=== PATIENT | female | born 1995 | race American Indian/Alaskan Native ===

== ENCOUNTER 2020-03-06 12:05 | Inpatient (IN) | payer MEDICAID ==
--- NOTE | 2020-03-06 13:29 | History and Physical Report ---
History of Present Illness Date of examination: 03/06/20 History of present illness: 24 yo at 38.5 weeks today with h/o 2 prior c-sections is here to rule out preeclampsia. Patient with an uncomplicated but had elevated blood pressures in the office the last couple weeks. Blood pressure in office today was 152/97 and 142/100. No protein on urine dip. No preeclamptic symptoms. Patient is on low-dose aspirin because she had preeclampsia during her last . Only other complaint patient has is bilateral calf pain and tenderness. She has had this for a few days now. Past History Past Medical History: other (h/o preeclampsia) Past Surgical History: section (x 2) Medications and Allergies Allergies Allergy/AdvReac Type Severity Reaction Status Date / Time No Known Allergies Allergy Unverified 01/20/15 20:05 Home Medications Medication Instructions Recorded Confirmed Last Taken Type Acetamin/Codeine 120-12Mg/5 ml 5 ml PO TID PRN #10 dose 01/20/15 Unknown Rx [Tylenol/Codeine] Amoxicillin [Amoxicillin TAB] 875 mg PO BID #20 tablet 01/20/15 Unknown Rx predniSONE [Prednisone] 40 mg PO QDAY #3 day 01/20/15 Unknown Rx Review of Systems All systems: negative (except HPI) - Physical Exam Abdomen: Positive: soft. Negative: tenderness Extremities: Positive: tenderness (B/L calf tend) - Obstetrical FHR comments: Pt is being put on the monitor now. Normal FHT in the office. Results All other labs normal. Assessment and Plan - Patient Problems (1) Elevated blood pressure affecting in third trimester, antepartum Current Visit: Yes Status: Acute Plan to address problem: Admit for observation and 24 hr urine. Check preeclamptic labs as well. Check BPP. H/O prior x 2 (2) Bilateral calf pain Current Visit: Yes Status: Acute Plan to address problem: check LE dopplers
[2020-03-06 14:20] LABS: Hematocrit 39.8 % (30.3-42.9); Hemoglobin 14.1 gm/dl (10.1-14.3); Mean Corpuscular HGB Conc 35 % (30-34); Mean Corpuscular Volume 99 fl (79-97); Platelet Count 148 K/mm3 (140-440); Red Blood Count 4.01 M/mm3 (3.65-5.03); Red Cell Distribution Width 12.9 % (13.2-15.2)
[2020-03-06 14:32] LABS: Alanine Aminotransferase 14 units/L (7-56); Uric Acid 5.3 mg/dL (3.5-7.6)
[2020-03-06 14:55] LABS: Bilirubin,Urine NEG (Negative); Blood,Urine NEG (Negative); Color,Urine Yellow (Yellow); Mucus,Urine FEW /HPF; Protein,Urine <15 mg/dL mg/dL (Negative); Urobilinogen,Urine < 2.0 mg/dL (<2.0)
--- NOTE | 2020-03-06 17:38 | Vascular Lab Report ---
DUPLEX DOPPLER LOWER EXTREMITY VEINS, BILATERAL INDICATION: calf pain and . TECHNIQUE: Duplex doppler imaging was performed through the veins of both lower extremities using venous kee melanie and other maneuvers. COMPARISON: None available. FINDINGS: Right Common Femoral vein: Negative. Right Superficial Femoral vein: Negative. Right Popliteal vein: Negative. Right Calf veins: Negative. Left Common Femoral vein: Negative. Left Superficial Femoral vein: Negative. Left Popliteal vein: Negative. Left Calf veins: Negative. Additional findings: None. IMPRESSION: 1. No sonographic evidence for DVT in either lower extremity. Signer Name: Viraj Erickson MD Signed: 03/06/2020 5:34 PM Workstation Name: [id number]
--- NOTE | 2020-03-06 17:40 | Ultrasound Report ---
ULTRASOUND BIOPHYSICAL PROFILE LIMITED OBSTETRIC ULTRASOUND INDICATION: Maternal hypertension. COMPARISON: None available. FINDINGS: breathing movement = 2 Gross body movement = 2 tone = 2 Qualitative amniotic fluid volume = 2 Total biophysical score = 8/8 Presentation is Cephalic. heart rate is 137 beats per minute. Amniotic fluid index is 10.5 cm, within normal limits. IMPRESSION: 1. biophysical profile = 8/8 2. Amniotic fluid index is 10.5 cm, within normal limits. 3. lie is cephalic. Signer Name: Viraj Erickson MD Signed: 03/06/2020 5:35 PM Workstation Name: [id number]
[2020-03-06] MEDS: LACTATED RINGERS 1,000 ML IV SCH (23:39)
[2020-03-07] MEDS ORDERED: METOCLOPRAMIDE 10 MG/2 ML INJ IV NR (08:41)
[2020-03-07] MEDS ORDERED: FAMOTIDINE 20 MG/2 ML INJ IV NR (08:41)
[2020-03-07] MEDS ORDERED: BICITRA ORAL LIQD 30ML PO NR (08:41)
[2020-03-07] MEDS ORDERED: MAGNESIUM SULFATE 4 GM/100 ML BAG IV NR (08:43)
[2020-03-07] MEDS ORDERED: LACTATED RINGERS 1,000 ML IV SCH (09:00)
[2020-03-07] MEDS ORDERED: OXYTOCIN 20 UNIT/1000ML DRIP 20 UNITS/1,000 ML BAG IV SCH ×2 (09:00→15:00)
[2020-03-07] MEDS ORDERED: MAGNESIUM SULFATE 40GM/1000ML 40 GM/1,000 ML BAG IV SCH (09:00)
[2020-03-07] MEDS ORDERED: ceFAZolin/Water 2 GM/20 ML 2 GM/20 ML SYRINGE IV NR (09:00)
[2020-03-07 10:51] LABS: Basophils % (Auto) 0.4 % (0.0-1.8); Eosinophils % (Auto) 0.6 % (0.0-4.3); Hematocrit 39.6 % (30.3-42.9); Hemoglobin 13.8 gm/dl (10.1-14.3); Lymphocytes # (Auto) 1.1 K/mm3 (1.2-5.4); Lymphocytes % (Auto) 16.6 % (13.4-35.0); Mean Corpuscular HGB Conc 35 % (30-34); Mean Corpuscular Volume 99 fl (79-97); Monocytes # (Auto) 0.5 K/mm3 (0.0-0.8); Monocytes % (Auto) 7.6 % (0.0-7.3); Platelet Count 146 K/mm3 (140-440); Red Blood Count 4.02 M/mm3 (3.65-5.03)
[2020-03-07] MEDS ORDERED: AMPICILLIN 2 GM in SODIUM CHLORIDE 0.9% 50 ML IV ONE (11:56)
[2020-03-07] MEDS ORDERED: AMPICILLIN/NS 2 GM/100 ML 2 GM/100 ML BAG IV ONE (12:05)
--- NOTE | 2020-03-07 12:07 | Event Note ---
Date: 03/07/20 BPs are labile and elevated. 24 hr urinary is cancelled and patient will be delivered by repeat as soon as the or is ready.
[2020-03-07] MEDS ORDERED: KETOROLAC 30 MG/1 ML INJ ONE (13:01)
[2020-03-07] MEDS ORDERED: DEXMEDETOMIDINE 200 MCG/2 ML VIAL IV ONE (13:01)
[2020-03-07] MEDS ORDERED: ONDANSETRON 4 MG/2 ML INJ ONE (13:01)
[2020-03-07] MEDS ORDERED: SODIUM CHLORIDE 0.9% IRR 1,500 ML BOTTLE IR ONE (13:35)
[2020-03-07] MEDS ORDERED: WATER FOR IRRIG STERILE 1,500 ML BOTTLE IR ONE (13:35)
[2020-03-07] MEDS ORDERED: ceFAZolin 1 GM VIAL ONE (13:39)
[2020-03-07] MEDS ORDERED: OXYTOCIN 10 UNIT/1 ML INJ ONE (13:58)
[2020-03-07] MEDS ORDERED: LANOLIN/ZINC/DIMETHICONE (LANSINOH) 7 GM TP PRN (14:28)
[2020-03-07] MEDS ORDERED: WITCH HAZEL/ GLYCERIN PAD TP PRN (14:28)
[2020-03-07] MEDS ORDERED: NALOXONE 0.4 MG/1 ML INJ IV PRN (14:28)
[2020-03-07] MEDS ORDERED: MORPHINE 4 MG/1 ML INJ IV PRN (14:28)
[2020-03-07] MEDS ORDERED: ONDANSETRON 4 MG/2 ML INJ IV PRN ×2 (14:28→14:42)
[2020-03-07] MEDS ORDERED: ACETAMINOPHEN 325 MG TAB PO PRN (14:28)
--- NOTE | 2020-03-07 14:35 | Operative Report ---
Operative Report Operative Report: Date of surgery: March 07, 2020 Preoperative diagnoses: Preeclampsia, 2 previous C-sections, annie Postoperative diagnoses: The same. Operation: Lower segment transverse delivery Surgeon:Homer Walker MD Foreign Trade Teacher: Bhargav Saeed CRNA Anesthesia: Spinal block Estimated blood loss: 600 mL Complications: None Findings: There was a live baby girl weighing 255 3 g, Apgars 8/9 in vertex presentation. The ovaries, fallopian tubes and the uterus were all grossly normal. No peritoneal adhesions were found within the lower abdomen and pelvis. The greater omentum was palpably normal. Procedure in detail: The patient was taken to the operating room and given a spinal block. Patient was placed in the straight supine position and a Venegas catheter was inserted. The patient was prepped in the abdomen. The drapes were placed. A timeout was done. With the go ahead from the commercial sales manager, a Pfannenstiel incision was made. This incision was carried across the subcutaneous layer to the fascia which was also divided transversely. The recti abdominis muscle flaps were stripped from the fascia using a combination of blunt and sharp dissections. The muscles were in the midline to gain access to the anterior parietal peritoneum which was divided after excluding any underlying viscera. The access to the peritoneal cavity was then widened by manual stretching. The bladder blade was applied. The utero vesicle peritoneal flap was divided transversely allowing the bladder to be displaced caudally. The uterine incision was placed in the lower segment transversely. The uterine incision was carried to the decidual layer. The uterine incision was extended on both sides using the bandage scissors. The amniotic sac was ruptured with clear fluid. The head was lifted out of the false maternal pelvis and delivered through the incision using fundal pressure. The airways were bulb suctioned beginning with the mouth. Continuing fundal pressure combined with traction on the mandibular processes of the jaw delivered the rest of the baby. The umbilical cord was double clamped and divided. The baby was carefully transferred to the pediatric team. The placenta was manually removed from the uterine cavity. The uterine cavity was explored and was empty of any placental remnants. The uterine incision was repaired in 2 layers with #1 Vicryl. The surgical line on the uterus was hemostatic. Blood and clots were cleared from the peritoneal cavity. The anterior parietal peritoneum was repaired with #1 Vicryl. The fascia was repaired with #1 Vicryl. The subcutaneous layer was made hemostatic using the Bovie before the skin was closed subcuticularly with 4-0 Vicryl. There were no complications. The estimated blood loss was 600 mL. All sponges and instrument counts were correct. Patient was safely transferred to the recovery room.
[2020-03-07] MEDS ORDERED: NalbUPHINE 10 MG/1 ML INJ IV PRN (14:42)
[2020-03-07] MEDS ORDERED: PROMETHAZINE 25 MG RECT SUPP PR PRN (14:42)
[2020-03-07] MEDS ORDERED: HYDROmorphone 1 MG/1 ML INJ IV PRN (14:42)
[2020-03-07] MEDS ORDERED: diphenhydrAMINE 50 MG/ML VIAL IV PRN (14:42)
[2020-03-07] MEDS ORDERED: PROMETHAZINE 25 MG TAB PO PRN (14:42)
--- NOTE | 2020-03-07 14:45 | Anesthesia Day of Surgery ---
Anesthesia Day of Surgery - Day of Surgery Patient Examined: Yes Patient H&P Reviewed: Yes Patient is NPO: Yes Beta Blockers: No Cardiac Clearance: No Pulmonary Clearance: No Nehemias's Test: N/A
--- NOTE | 2020-03-07 14:45 | Anesthesia Consultation ---
Anesthesia Consult and Med Hx - Airway Anesthetic Teeth Evaluation: Good ROM Head & Neck: Adequate Mental/Hyoid Distance: Adequate Mallampati Class: Class II Intubation Access Assessment: Good - Pulmonary Exam CTA: Yes - Cardiac Exam Cardiac Exam: RRR - Pre-Operative Health Status ASA Pre-Surgery Classification: ASA2 Proposed Anesthetic Plan: Spinal - Pulmonary Hx Smoking: No Hx Asthma: No COPD: No Hx Pneumonia: No Hx Sleep Apnea: No - Cardiovascular System Hx Hypertension: Yes (2013, 2015) - Central Nervous System Hx Seizures: No Hx Psychiatric Problems: No - Gastrointestinal Hx Gastroesophageal Reflux Disease: No - Endocrine Hx Renal Disease: No Hx End Stage Renal Disease: No Hx Insulin Dependent Diabetes: No Hx Non-Insulin Dependent Diabetes: No Hx Hypothyroidism: No Hx Hyperthyroidism: No - Hematic Hx Anemia: No Hx Sickle Cell Disease: No - Other Systems Hx Alcohol Use: No
--- NOTE | 2020-03-07 14:47 | Progress Note ---
Spinal Anesthesia Block - Spinal Anesthesia Block Start Time: 13:15 Stop Time: 13:20 Performed by:: MICHAEL ROOT Procedure: Spinal anesthesia block is being performed for [C/S]. H&P, labs have been reviewed. Patient's questions and concerns have been answered. Informed consent has been performed. Timeout has was performed. Patient in sitting position on side of bed. Sterile prep and drape was performed. [3] mL 1% lidocaine skin wheal at L [3]-L [4]. Needle introducer advanced. 25-gauge spinal needle advanced, [positive] CSF [negative] blood. [11.25mg Marcaine and 10mcg Precedex] Spinal dose was given. All needles removed. Patient tolerated procedure well.
[2020-03-07] MEDS: HYDROcodone/ACETAMINOPHEN 5-325 MG TAB PO PRN (17:07)
[2020-03-07] MEDS: LACTATED RINGERS 1,000 ML IV SCH (20:06)
[2020-03-07] MEDS: ceFAZolin/NS 1 GM/50 ML 1 GM/50 ML BAG IV SCH (21:10)
[2020-03-08] MEDS: KETOROLAC 30 MG/1 ML INJ IV PRN ×2 (00:59→09:38)
[2020-03-08] MEDS: ceFAZolin/NS 1 GM/50 ML 1 GM/50 ML BAG IV SCH (04:58)
[2020-03-08] MEDS: LACTATED RINGERS 1,000 ML IV SCH (05:01)
[2020-03-08 06:07] LABS: Hematocrit 28.6 % (30.3-42.9)
--- NOTE | 2020-03-08 08:32 | Post Anesthesia Evaluation ---
- Post Anesthesia Evaluation Patient Participated: Yes Airway Patent: Yes Stable Respiratory Function: Yes Nausea/Vomiting: No Temp > 96.8F: Yes Pain Manageable: Yes Adequeate Hydration: Yes Anesthesia Complications: No Block Receding Appropriately: Yes Patient on Ventilator: No
[2020-03-08] MEDS: IBUPROFEN 800 MG TAB PO PRN ×2 (09:00→18:12)
[2020-03-08] MEDS: PRENATAL VIT27-FE FUMARATE-FOLIC ACID VIT TAB PO SCH (09:38)
[2020-03-08] MEDS: FERROUS SULFATE 325 MG TAB PO SCH (09:39)
--- NOTE | 2020-03-08 13:12 | Progress Note ---
Assessment and Plan A: /postop day 1 S/P repeat LTCS. Anemia. Preeclampsia, on magnesium sulfate. P: Mag is to be stopped this afternoon. Supplement with iron. Subjective - Subjective Date of service: 03/08/20 Principal diagnosis: /postop day 1 S/P repeat LTCS; preeclampsia Interval history: /postop day 1 S/P repeat LTCS. Denies headache, visual disturbance, or N/V. Patient reports: appetite normal, pain well controlled, flatus, no nauseated : doing well Objective - Vital Signs Latest vital signs: Vital Signs Temp Pulse Resp BP Pulse Ox 03/08/20 13:03 89 99 03/08/20 12:58 98 H 99 03/08/20 12:53 94 H 99 03/08/20 12:48 92 H 99 03/08/20 12:43 80 99 03/08/20 12:38 86 99 03/08/20 12:33 89 98 03/08/20 12:28 82 99 03/08/20 12:23 80 99 03/08/20 12:18 81 99 03/08/20 12:13 88 98 03/08/20 12:09 82 137/85 03/08/20 12:08 86 99 03/08/20 12:03 83 99 03/08/20 11:58 81 99 03/08/20 11:53 84 99 03/08/20 11:48 83 99 03/08/20 11:43 85 99 03/08/20 11:38 84 99 03/08/20 11:33 89 98 03/08/20 11:28 88 99 03/08/20 11:23 88 99 03/08/20 11:18 79 99 03/08/20 11:13 85 99 03/08/20 11:09 82 133/77 03/08/20 11:08 81 99 03/08/20 11:03 87 99 03/08/20 10:58 88 99 03/08/20 10:53 91 H 99 03/08/20 10:48 94 H 99 03/08/20 10:43 94 H 99 03/08/20 10:38 84 100 03/08/20 10:33 89 99 03/08/20 10:28 86 99 03/08/20 10:23 85 99 03/08/20 10:18 82 99 0614/20 10:13 79 99 061420 10:09 71 125/73 0620 10:08 78 99 0620 10:03 79 99 0620 09:58 73 99 06 09:53 78 99 03/08/20 09:48 89 99 03/08/20 09:43 81 99 06 09:38 85 100 03/08/20 09:33 86 99 03/08/20 09:28 81 99 03/08/20 09:23 84 99 03/08/20 09:18 86 99 03/08/20 09:13 71 99 06 09:09 71 151/77 06 09:08 69 99 03/08/20 09:03 71 99 03/08/20 08:58 72 99 03/08/20 08:53 74 99 03/08/20 08:48 79 99 03/08/20 08:43 87 98 03/08/20 08:38 69 99 03/08/20 08:33 78 99 03/08/20 08:28 76 99 03/08/20 08:23 89 98 03/08/20 08:20 97.8 F 03/08/20 08:18 93 H 100 03/08/20 08:13 71 100 03/08/20 08:09 69 134/87 03/08/20 08:08 71 100 03/08/20 08:03 71 99 03/08/20 07:58 69 99 03/08/20 07:53 68 99 03/08/20 07:48 68 99 03/08/20 07:43 68 100 03/08/20 07:38 66 99 20 07:33 67 98 03/08/20 07:28 74 99 20 07:23 67 100 20 07:18 66 99 20 07:13 69 99 20 07:09 71 121/76 06 07:08 78 99 03/08/20 07:03 70 99 03/08/20 06:58 67 98 06 06:53 72 98 06 06:48 74 99 03/08/20 06:43 73 98 03/08/20 06:38 79 98 03/08/20 06:33 78 100 03/08/20 06:28 78 99 03/08/20 06:23 94 H 99 03/08/20 06:18 71 99 03/08/20 06:13 71 99 03/08/20 06:09 79 137/87 03/08/20 06:08 80 100 03/08/20 06:03 73 99 03/08/20 06:00 97.8 F 16 98 03/08/20 05:58 69 99 03/08/20 05:53 70 99 03/08/20 05:48 70 100 03/08/20 05:43 68 99 03/08/20 05:38 72 99 03/08/20 05:33 72 99 03/08/20 05:28 79 100 03/08/20 05:23 80 98 03/08/20 05:18 72 100 03/08/20 05:13 88 99 03/08/20 05:09 66 114/60 03/08/20 05:08 68 99 03/08/20 05:03 63 99 03/08/20 04:58 65 100 03/08/20 04:53 67 99 03/08/20 04:48 65 99 03/08/20 04:43 65 100 03/08/20 04:38 75 100 03/08/20 04:33 62 99 03/08/20 04:28 74 99 03/08/20 04:23 71 99 03/08/20 04:18 67 99 03/08/20 04:13 64 99 03/08/20 04:09 64 119/67 03/08/20 04:08 77 100 03/08/20 04:03 67 99 03/08/20 03:58 68 99 03/08/20 03:53 63 99 03/08/20 03:48 70 99 03/08/20 03:43 69 99 03/08/20 03:38 96 H 99 03/08/20 03:33 70 98 03/08/20 03:28 68 98 03/08/20 03:23 71 98 03/08/20 03:18 69 99 03/08/20 03:13 68 98 03/08/20 03:09 71 128/75 03/08/20 03:08 69 99 03/08/20 03:03 70 99 03/08/20 02:58 70 100 06/14/20 02:53 75 100 03/08/20 02:48 77 99 03/08/20 02:43 78 99 03/08/20 02:38 69 98 03/08/20 02:33 71 99 03/08/20 02:28 74 99 03/08/20 02:23 67 98 03/08/20 02:18 66 98 03/08/20 02:13 74 99 03/08/20 02:09 66 134/77 03/08/20 02:08 68 98 03/08/20 02:03 68 98 03/08/20 01:58 68 98 03/08/20 01:53 74 97 03/08/20 01:48 66 98 03/08/20 01:43 65 99 03/08/20 01:38 70 100 03/08/20 01:33 86 99 03/08/20 01:28 62 98 03/08/20 01:23 72 99 03/08/20 01:18 65 99 03/08/20 01:13 69 99 03/08/20 01:09 71 138/90 03/08/20 01:08 73 99 03/08/20 01:03 78 100 03/08/20 00:58 80 100 03/08/20 00:53 74 100 03/08/20 00:48 71 100 03/08/20 00:43 67 99 03/08/20 00:38 66 100 03/08/20 00:33 65 99 03/08/20 00:28 66 99 03/08/20 00:23 67 98 03/08/20 00:18 65 99 03/08/20 00:13 64 99 06 00:09 61 132/74 03/08/20 00:08 65 100 03/08/20 00:03 65 99 03/07/20 23:58 61 99 03/07/20 23:53 76 99 03/07/20 23:48 74 100 03/07/20 23:43 78 100 06 23:38 74 100 03/07/20 23:33 74 100 03/07/20 23:28 66 99 06 23:23 66 99 03/07/20 23:18 73 99 03/07/20 23:13 86 99 03/07/20 23:09 77 128/67 03/07/20 23:08 86 100 03/07/20 23:03 71 99 03/07/20 22:58 73 99 03/07/20 22:53 69 99 03/07/20 22:48 79 100 03/07/20 22:43 75 99 03/07/20 22:38 87 100 03/07/20 22:33 69 99 03/07/20 22:28 68 98 03/07/20 22:23 68 98 03/07/20 22:18 70 98 03/07/20 22:13 90 99 03/07/20 22:09 66 121/69 03/07/20 22:08 68 99 03/07/20 22:03 73 99 03/07/20 21:58 74 99 03/07/20 21:53 72 99 03/07/20 21:48 72 98 03/07/20 21:43 84 99 03/07/20 21:38 73 98 03/07/20 21:33 80 98 03/07/20 21:28 74 99 03/07/20 21:23 74 99 03/07/20 21:18 78 99 03/07/20 21:13 83 98 03/07/20 21:09 86 121/67 03/07/20 21:08 95 H 99 03/07/20 21:03 75 98 03/07/20 20:58 72 97 03/07/20 20:52 71 99 03/07/20 20:47 76 99 03/07/20 20:42 71 99 03/07/20 20:37 68 98 03/07/20 20:32 68 99 03/07/20 20:27 82 98 03/07/20 20:22 68 98 03/07/20 20:17 69 100 03/07/20 20:12 75 99 03/07/20 20:09 71 119/69 03/07/20 20:07 74 99 03/07/20 20:02 69 98 03/07/20 19:57 77 100 03/07/20 19:52 72 99 03/07/20 19:47 72 100 03/07/20 19:42 65 99 03/07/20 19:37 69 100 03/07/20 19:32 72 100 03/07/20 19:27 69 98 03/07/20 19:22 68 98 03/07/20 19:17 70 100 03/07/20 19:12 69 99 03/07/20 19:07 70 100 03/07/20 19:02 69 100 03/07/20 18:57 65 99 03/07/20 18:52 65 100 03/07/20 18:51 64 121/77 03/07/20 18:47 63 100 03/07/20 18:42 64 129/80 99 03/07/20 17:58 18 100 03/07/20 17:43 69 99 03/07/20 17:38 66 99 03/07/20 17:33 68 99 03/07/20 17:28 62 100 03/07/20 17:23 64 99 03/07/20 17:18 65 100 03/07/20 17:16 58 L 137/80 03/07/20 17:13 59 L 100 03/07/20 17:08 60 100 03/07/20 17:07 16 03/07/20 17:03 60 100 03/07/20 16:58 62 100 03/07/20 16:53 64 100 03/07/20 16:48 57 L 03/07/20 16:43 60 130/81 100 03/07/20 16:38 59 L 131/81 100 03/07/20 16:33 98.4 F 58 L 03/07/20 16:28 56 L 100 03/07/20 16:26 56 L 138/81 03/07/20 16:23 60 100 03/07/20 16:18 62 100 Intake and Output 03/07/20 03/08/20 03/08/20 23:59 07:59 15:59 Intake Total 110 1000 Output Total 870 800 Balance -760 200 Intake: IV 60 1000 ANCEF/NS 1 GM/50 ML 1 gm 50 In 50 ml @ 100 mls/hr IV Q8H JONI Rx#:[id number] Lactated Ringers 1,000 ml 1000 @ 125 mls/hr IV DIRECT JONI Rx#:[id number] Right Antecubital 10 Oral 50 Output: Urine 870 800 Indwelling Catheter 770 800 Uretheral (Venegas) 100 Other: Total, Intake Amount 50 Total, Output Amount 120 800 # Voids Indwelling Catheter 1 - Exam Cardiovascular: Present: Regular rate, Normal S1, Normal S2, No murmurs Lungs: Present: Clear to auscultation Abdomen: Present: normal appearance, soft, normal bowel sounds. Absent: distention, tenderness, guarding, rigidity Uterus: Present: normal, firm, fundal height below umbilicus. Absent: bogginess, tenderness Extremities: Present: normal Incision: Present: normal, dry, dressed - Labs Labs: Abnormal lab results 03/07/20 03/08/20 03/08/20 Range/Units 21:05 05:31 10:47 Hgb 10.0 L D (10.1-14.3) gm/dl Hct 28.6 L D (30.3-42.9) % Magnesium 3.80 H 4.60 H (1.7-2.3) mg/dL
[2020-03-08] MEDS: HYDROcodone/ACETAMINOPHEN 5-325 MG TAB PO PRN ×2 (16:01→22:17)
[2020-03-08] MEDS ORDERED: MAGNESIUM HYDROXIDE (MOM) ORAL LIQD UDC PO PRN (22:03)
[2020-03-08] MEDS: DOCUSATE SODIUM 100 MG CAP PO SCH (22:15)
[2020-03-09] MEDS: HYDROcodone/ACETAMINOPHEN 5-325 MG TAB PO PRN ×2 (04:18→10:32)
[2020-03-09] MEDS: DOCUSATE SODIUM 100 MG CAP PO SCH ×2 (10:28→21:04)
[2020-03-09] MEDS: PRENATAL VIT27-FE FUMARATE-FOLIC ACID VIT TAB PO SCH (10:33)
[2020-03-09] MEDS: FERROUS SULFATE 325 MG TAB PO SCH (10:33)
--- NOTE | 2020-03-09 12:50 | Progress Note ---
Assessment and Plan A: POD #2 Preeclampsia Asymptomatic Anemia P: Follow Routine PostOp Orders Continue PO FeSO4 Anticipate D/C Home in the AM Subjective - Subjective Date of service: 03/09/20 Principal diagnosis: /postop day 1 S/P repeat LTCS; preeclampsia Patient reports: appetite normal, voiding normally, pain well controlled, flatus, bowel movement, ambulating normally, other (states pain mediacation makes her loopy; denies Has, visual changes, and N&V) [place]: doing well, bottle feeding Objective - Vital Signs Latest vital signs: Vital Signs Temp Pulse Resp BP BP Pulse Ox 03/09/20 08:42 97.8 F 83 16 125/77 95 03/09/20 00:00 98.4 F 78 20 134/62 100 03/08/20 15:38 98.2 F 84 20 130/84 99 03/08/20 14:43 89 99 03/08/20 14:38 83 100 03/08/20 14:33 90 99 03/08/20 14:28 87 99 03/08/20 14:23 94 H 100 03/08/20 14:18 91 H 100 03/08/20 14:13 93 H 100 03/08/20 14:09 84 131/76 03/08/20 14:08 86 99 03/08/20 14:05 87 126/77 03/08/20 14:03 88 99 03/08/20 14:01 98.4 F 03/08/20 13:58 90 99 03/08/20 13:53 83 98 03/08/20 13:48 98 H 99 03/08/20 13:43 78 98 03/08/20 13:38 80 98 03/08/20 13:33 83 98 03/08/20 13:28 83 99 03/08/20 13:23 84 99 03/08/20 13:18 86 98 03/08/20 13:13 96 H 98 03/08/20 13:09 88 131/77 03/08/20 13:08 94 H 98 03/08/20 13:03 89 99 03/08/20 12:58 98 H 99 03/08/20 12:53 94 H 99 03/08/20 12:48 92 H 99 Intake and Output 03/08/20 03/09/20 03/09/20 22:59 06:59 14:59 Intake Total 10 1600 Output Total 2049 Balance -2039 1600 Intake: IV 10 Right Antecubital 10 Oral 1600 Output: Urine 2049 Void 2049 Other: Total, Intake Amount 800 Total, Output Amount 600 Voiding Method Toilet # Voids 1 Void 1 1 - Exam Breasts: Present: normal Cardiovascular: Present: Regular rate Lungs: Present: Clear to auscultation, Normal air movement Abdomen: Present: normal appearance, soft, normal bowel sounds Uterus: Present: normal, firm, fundal height below umbilicus Extremities: Present: normal Incision: Present: normal, dry, intact
[2020-03-09] MEDS: IBUPROFEN 800 MG TAB PO PRN (21:04)
--- NOTE | 2020-03-10 12:29 | Discharge Summary ---
Providers - Providers Date of Admission: 03/06/20 12:06 Date of discharge: 03/10/20 Attending physician: EMILY LIU Primary care physician: EMILY LIU Hospitalization Reason for admission: section Delivery: Procedure: repeat low transverse Episiotomy: none Laceration: none Incision: dry, intact Other procedures: none complications: none Discharge diagnosis: IUP at term delivered, other (anemia) [place] baby: female Hospital course: See admission H & P, OB operative note and PP progress notes Condition at discharge: Stable Disposition: DC-01 TO HOME OR SELFCARE - Discharge Diagnoses (1) Status post repeat low transverse section Status: Acute (2) Anemia Status: Acute Qualifiers: Anemia type: other cause Other causes of anemia: acute posthemorrhagic Qualified Code(s): D62 - Acute posthemorrhagic anemia Plan - Discharge Medications Prescriptions: Ferrous Sulfate [Feosol 325 MG tab] 325 mg PO QDAY 30 Days #30 tablet Ibuprofen [Motrin 800 MG tab] 800 mg PO Q6H PRN 14 Days #56 tablet PRN Reason: Pain, Mild (1-3) HYDROcodone/APAP 5-325 [Parkman 5/325] 1 - 2 each PO Q6HR PRN #30 tablet PRN Reason: Pain - Provider Discharge Summary Activity: routine, no sex for 6 weeks, no heavy lifting 4 weeks, no strenuous exercise Diet: other (Iron rich diet) Instructions: routine Additional instructions: [] Smoking cessation referral if applicable(refer to patient education folder for contact #) [] Refer to [facility]'s [facility] Booklet Call your doctor immediately for: * Fever > 100.5 * Heavy vaginal bleeding ( >1 pad per hour) * Severe persistent headache * Shortness of breath * Reddened, hot, painful area to leg or breast * Drainage or odor from incision. * Keep incision clean and dry at all times and follow doctor's instructions regarding bathing/showering - Follow up plan Follow up: EMILY LIU MD [Primary Care Provider] - 7 Days
[2020-03-10] MEDS: HYDROcodone/ACETAMINOPHEN 5-325 MG TAB PO PRN (13:13)
[2020-03-10] MEDS: FERROUS SULFATE 325 MG TAB PO SCH (13:13)
[2020-03-10] MEDS: DOCUSATE SODIUM 100 MG CAP PO SCH (13:13)
[2020-03-10 13:31] VITALS: BP 133/80
== END 2020-03-10 13:20 | disposition home or self-care (01) | DRG 765 ==
LOC: TRG 12:05 → LD 12:06 → OB 03-08 15:57
PROVIDERS: ADMIT Obstetrics & Gynecology; ATTEND Obstetrics & Gynecology
PROC: 10D00Z1 Extraction of Products of Conception, Low, Open Approach (ICD-10-PCS; principal; 2020-03-07)
DX: O34.211 Maternal care for low transverse scar from previous cesarean delivery (principal); D62 Acute posthemorrhagic anemia; O90.81 Anemia of the puerperium; O75.89 Other specified complications of labor and delivery; M79.662 Pain in left lower leg; M79.661 Pain in right lower leg; O14.94 Unspecified pre-eclampsia, complicating childbirth; O16.4 Unspecified maternal hypertension, complicating childbirth; Z3A.38 38 weeks gestation of pregnancy; Z37.0 Single live birth
CPT/HCPCS: 36415; 76815; 76819; 81001; 82565; 83615; 83735; 84450; 84460; 84550; 85014; 85018; 85025; 85027; 86850; 86900; 86901; 88307; 93970; G0378; J0290; J0690; J1885; J2405; J2590; J2765; J3475; J3490; J7120; Q0169